=== PATIENT | female | born 1970 | race Asian ===

== ENCOUNTER → 2016-05-24 | Outpatient (REF) | LOC: WSOH 08:31 | DX: Z02.89 Encounter for other administrative examinations (principal) ==

== ENCOUNTER → 2016-05-24 | Outpatient (REF) | LOC: WSOH 16:00 | DX: Z02.89 Encounter for other administrative examinations (principal) ==

== ENCOUNTER → 2016-06-07 | Outpatient (REF) | LOC: WSOH 11:27 | DX: Z01.89 Encounter for other specified special examinations (principal) ==

== ENCOUNTER → 2016-08-13 | Outpatient (REF) | LOC: WSOH 08:20 | DX: Z01.89 Encounter for other specified special examinations (principal) ==

== ENCOUNTER → 2016-08-13 | Outpatient (REF) | LOC: WSOH 08:21 | DX: Z01.89 Encounter for other specified special examinations (principal) ==

== ENCOUNTER → 2018-10-07 | Outpatient (CLI) | payer OTHER | LOC: MC.RAD 07:54 | DX: Z12.31 Encounter for screening mammogram for malignant neoplasm of breast (principal) ==

== ENCOUNTER 2019-04-26 21:25 | Emergency (ER) | payer OTHER ==
[~2019-04-26] VITALS: Ht 167.6 cm; Wt 100.0 kg
[2019-04-26 21:34] VITALS: TEMP 97.6
[2019-04-26] MEDS ORDERED: PROAIR HFA0.09 MG/AC IH (21:37)
[2019-04-26] MEDS ORDERED: PRINIVIL5 MG PO (21:37)
[2019-04-26] MEDS ORDERED: CLARINEX 5MG5 MG PO (21:37)
[2019-04-26] MEDS ORDERED: CEPHALEXIN500 M1 PO (23:37)
[2019-04-26 23:55] VITALS: BP 148/84; PULSE 80
== END 2019-04-26 23:55 | disposition home or self-care (01) ==
LOC: COL.ER 21:25
DX: S91.111A Laceration without foreign body of right great toe without damage to nail, initial encounter (principal); J45.909 Unspecified asthma, uncomplicated; K21.9 Gastro-esophageal reflux disease without esophagitis; I10 Essential (primary) hypertension; Z23 Encounter for immunization; W26.8XXA Contact with other sharp object(s), not elsewhere classified, initial encounter; W01.0XXA Fall on same level from slipping, tripping and stumbling without subsequent striking against object, initial encounter; Y92.009 Unspecified place in unspecified non-institutional (private) residence as the place of occurrence of the external cause

== ENCOUNTER → 2019-05-07 | Outpatient (CLI) | payer OTHER ==
[~2019-05-07] MED LIST: CEPHALEXIN500 M1 PO; CLARINEX 5MG5 MG PO; PRINIVIL5 MG PO; PROAIR HFA0.09 MG/AC IH
[2019-05-07 17:52] VITALS: BP 162/78; PULSE 87; TEMP 97.8
== END ==
LOC: COL.ER 17:27
DX: Z48.02 Encounter for removal of sutures (principal)

== ENCOUNTER → 2019-05-11 | Outpatient (CLI) | payer OTHER ==
[2019-05-11 09:14] VITALS: BP 158/79; PULSE 85; TEMP 98.5
== END ==
LOC: COL.ER 08:40
DX: Z48.02 Encounter for removal of sutures (principal)

== ENCOUNTER → 2021-01-01 | Outpatient (CLI) | payer OTHER | LOC: MC.RAD 11-08 11:30 | DX: Z12.31 Encounter for screening mammogram for malignant neoplasm of breast (principal) ==

== ENCOUNTER 2021-03-19 09:34 | Emergency (ER) | payer OTHER ==
[~2021-03-19] VITALS: Ht 167.6 cm; Wt 97.7 kg
[2021-03-19 09:45] VITALS: TEMP 97.3
[2021-03-19] MEDS ORDERED: OMEGA-3 FISH1000 MG PO (10:01)
[2021-03-19] MEDS ORDERED: VITAMIND3 5000 PO (10:01)
[2021-03-19] MEDS ORDERED: B-121000 MCG PO (10:02)
[2021-03-19 10:26] LABS: BASO # 0.1 K/mm3 (0.0-0.2); BASO % 0.6 % (0.0-2.0); EOS # 0.1 K/mm3 (0.0-0.7); EOS % 0.8 % (0.0-4.0); GRAN # 8.3 K/mm3 (1.4-6.5); GRAN % 76.3 % (42.2-75.2); HEMATOCRIT 39.8 % (37.0-47.0); HEMOGLOBIN 13.2 g/dl (12.5-16.0); LYMPH # 1.9 K/mm3 (1.2-3.4); LYMPH % 17.7 % (20.0-51.0); MEAN CELL VOLUME 85 fl (80.0-100.0); MEAN CORPUSCULAR HEMOGLOBIN 28 pg (27-31); MEAN CORPUSCULAR HGB CONC 33 g/dl (33.0-37.0); MEAN PLATELET VOLUME 11.3 fl (7.4-10.4); MONO # 0.5 K/mm3 (0.1-0.6); MONO % 4.3 % (1.7-9.3); PLATELET COUNT 260 K/mm3 (130-400); RED BLOOD COUNT 4.71 M/mm3 (4.10-5.30); REDCELL DISTRIBUTION WIDTH-CV 12.5 % (11.5-14.5)
[2021-03-19 10:31] LABS: INR 1.1 (0.8-3.0); PROTHROMBIN TIME 12.4 SECONDS (9.7-12.8)
[2021-03-19 10:34] LABS: PARTIAL THROMBOPLASTIN TIME 32.3 SECONDS (26.0-37.0)
[2021-03-19 10:48] LABS: ALANINE AMINOTRANSFERASE 17 U/L (0-55); ALBUMIN 4.3 gm/dL (3.5-5.0); ALKALINE PHOSPHATASE 94 U/L (40-150); ANION GAP 13 mmol/L (7-16); AST,SGOT 17 U/L (5-34); BILIRUBIN,TOTAL 0.7 mg/dL (0.2-1.2); BLOOD UREA NITROGEN 12 mg/dL (10-20); CALCIUM 9.6 mg/dL (8.4-10.2); CARBON DIOXIDE 20 mmol/L (22-29); CHLORIDE 106 mmol/L (98-107); CREATININE, serum 0.89 mg/dL (0.57-1.11); GLUCOSE 108 mg/dL (70-99); POTASSIUM 3.7 mmol/L (3.5-4.5); SODIUM 139 mmol/L (136-145); TOTAL PROTEIN 7.9 gm/dL (6.2-8.1)
[2021-03-19 11:03] LABS: TROPONIN-I < 0.010 ng/mL (0.00-0.033)
[2021-03-19 12:00] VITALS: BP 132/90; PULSE 85
== END 2021-03-19 12:15 | disposition home or self-care (01) ==
LOC: COL.ER 09:34
PROVIDERS: Family Medicine
DX: I10 Essential (primary) hypertension (principal); J45.909 Unspecified asthma, uncomplicated; Z79.899 Other long term (current) drug therapy

== ENCOUNTER → 2022-01-04 | Outpatient (CLI) | payer OTHER ==
[~2022-01-04] MED LIST changes: +B-121000 MCG PO; +OMEGA-3 FISH1000 MG PO; +VITAMIND3 5000 PO
== END ==
LOC: MC.RAD 09:33
DX: Z12.31 Encounter for screening mammogram for malignant neoplasm of breast (principal)

== ENCOUNTER → 2023-03-21 | Outpatient (CLI) | payer OTHER | LOC: MC.RAD 13:56 | DX: Z12.31 Encounter for screening mammogram for malignant neoplasm of breast (principal) ==

== ENCOUNTER 2023-06-03 08:00 | Outpatient (RCR) | payer OTHER | END 2023-06-08 | disposition home or self-care (01) | LOC: WSPT | DX: M25.561 Pain in right knee (principal) ==

== ENCOUNTER 2024-01-07 08:02 | Emergency (ER) | payer OTHER ==
[~2024-01-07] VITALS: Ht 167.6 cm; Wt 80.0 kg
[2024-01-07 08:08] VITALS: TEMP 97.9
[2024-01-07 08:46] LABS: BASO # 0.1 K/mm3 (0.0-0.2); BASO % 0.7 % (0.0-2.0); EOS # 0.2 K/mm3 (0.0-0.7); EOS % 2.3 % (0.0-4.0); GRAN % 70.8 % (42.2-75.2); HEMATOCRIT 41.8 % (37.0-47.0); HEMOGLOBIN 14.4 g/dl (12.5-16.0); LYMPH # 2.1 K/mm3 (1.2-3.4); LYMPH % 20.8 % (20.0-51.0); MEAN CELL VOLUME 84 fl (80.0-100.0); MEAN CORPUSCULAR HEMOGLOBIN 29 pg (27-31); MEAN CORPUSCULAR HGB CONC 34 g/dl (33.0-37.0); MEAN PLATELET VOLUME 12.3 fl (7.4-10.4); MONO # 0.5 K/mm3 (0.1-0.6); MONO % 5.1 % (1.7-9.3); PLATELET COUNT 189 K/mm3 (130-400); RED BLOOD COUNT 4.99 M/mm3 (4.10-5.30); REDCELL DISTRIBUTION WIDTH-CV 12.7 % (11.5-14.5)
[2024-01-07 08:51] LABS: ALANINE AMINOTRANSFERASE 9 U/L (0-55); ALBUMIN 4.1 g/dL (3.5-5.0); ALKALINE PHOSPHATASE 73 U/L (40-150); ANION GAP 17 mmol/L (7-16); AST,SGOT 16 U/L (5-34); BILIRUBIN,TOTAL 0.8 mg/dL (0.2-1.2); BLOOD UREA NITROGEN 13 mg/dL (10-20); CALCIUM 9.9 mg/dL (8.4-10.2); CHLORIDE 103 mEq/L (98-107); CREATININE, serum 0.77 mg/dL (0.57-1.11); GLUCOSE 92 mg/dL (70-99); POTASSIUM 3.8 mEq/L (3.5-4.5); SODIUM 137 mEq/L (136-145); TOTAL PROTEIN 7.9 g/dl (6.2-8.1)
[2024-01-07 08:58] LABS: TROPONIN-I < 0.010 ng/mL (0.00-0.033)
[2024-01-07 11:48] VITALS: BP 129/92; PULSE 89
== END 2024-01-07 11:52 | disposition home or self-care (01) ==
LOC: COL.ER 08:02
PROVIDERS: Personal Emergency Response Attendant
DX: R07.89 Other chest pain (principal); R20.2 Paresthesia of skin